=== PATIENT | female | born 1955 | race Caucasian/White ===

== ENCOUNTER 2025-08-26 11:00 | Day surgery (SDC) | payer OTHER ==
[2025-08-25 13:12] VITALS: BP 164/70
[~2025-08-26] VITALS: Ht 149.9 cm; Wt 61.2 kg
[~2025-08-26 11:00] MED LIST: CRESTOR 20MG; EXEMESTANE; FOSINOPRIL 10 MG; HYDROCHLOROTHIA25 MG; MONOPRIL; SYNTHROID75 MCG; VITAMINA D
[2025-08-26] MEDS ORDERED: CEFAZOLIN SODIUM 1,000 MG VIAL ONE (12:36)
[2025-08-26] MEDS ORDERED: CHLORHEXIDINE GLUCONATE 120 ML BOTTLE TOP ONE (15:35)
== END 2025-08-26 19:17 | disposition home or self-care (01) ==
LOC: CIR.AMB 11:00
PROVIDERS: ATTEND Surgery
DX: C50.411 Malignant neoplasm of upper-outer quadrant of right female breast (principal); R59.0 Localized enlarged lymph nodes